=== PATIENT | female | born 1990 | race Caucasian/White ===

== ENCOUNTER 2019-03-08 09:57 | Inpatient (IN) | payer OTHER ==
[~2019-03-08] VITALS: Ht 149.9 cm; Wt 59.1 kg
[2019-03-08] MEDS ORDERED: PEG 3350/NA SULF,BICARB,CL/KCL 4000 ML SOLUTION PO ONE (10:15)
[2019-03-08] MEDS ORDERED: SODIUM CHLORIDE 0.9% 1,000 ML IV ONE (10:15)
[2019-03-08 12:25] LABS: BASOPHILS % (AUTO) 0.5 % (0.0-2.0); EOSINOPHILS % (AUTO) 1.8 % (1.0-6.0); HEMATOCRIT 36.2 % (36-46); HEMOGLOBIN 12.1 g/dL (12.0-16.0); LYMPHOCYTES # (AUTO) 2.6 K/uL (1.0-4.8); LYMPHOCYTES % (AUTO) 42.7 % (22.0-44.0); MEAN CORPUSCULAR HEMOGLOBIN 29.2 pg (26.0-34.0); MEAN CORPUSCULAR HGB CONC 33.3 G/dL (31.0-37.0); MEAN CORPUSCULAR VOLUME 88 fL (80-100); MONOCYTES # (AUTO) 0.6 K/uL (0.1-1.0); MONOCYTES % (AUTO) 9.2 % (2.0-9.0); NEUTROPHILS # (AUTO) 2.8 K/uL (1.8-7.7); NEUTROPHILS % (AUTO) 45.8 % (40.0-70.0); PLATELET COUNT (AUTO) 227 K/uL (150-450); RED BLOOD CELL COUNT(AUTO) 4.14 MIL/uL (4.00-5.20); RED CELL DISTRIBUTION WIDTH 13.8 % (11.5-14.5)
[2019-03-08 12:50] LABS: ALANINE AMINOTRANSFERASE 22 U/L (12-78); ALBUMIN 3.1 g/dL (3.4-5.0); ALKALINE PHOSPHATASE 72 U/L (46-116); ANION GAP 9 mmol/L (8-16); ASPARTATE AMINOTRANSFERASE 20 U/L (15-37); BILIRUBIN,TOTAL 0.4 mg/dL (0.1-1.0); CALCIUM, TOTAL 8.3 mg/dL (8.8-10.5); CARBON DIOXIDE 22 mmol/L (22-29); CHLORIDE 106 mmol/L (98-107); CREATININE 0.45 mg/dL (0.60-1.30); GLOMERULAR FILTR. RATE CALC > 60 mL/min (>60); GLUCOSE,RANDOM 126 mg/dL (70-110); HCG,QUANTITATIVE 1 mIU/mL (0-6); SODIUM SERUM 137 mmol/L (136-145); TOTAL PROTEIN, SERUM 6.5 g/dL (6.4-8.2); UREA NITROGEN, BLOOD 12 mg/dL (7-18)
[2019-03-08 12:51] LABS: ACETAMINOPHEN < 2 mcg/mL (10-30)
[2019-03-08 13:26] LABS: SALICYLATE 0.4 mg/dL (2.8-20.0)
[2019-03-08] MEDS ORDERED: NALOXONE HCL 1 MG/ML 2 ML SYG IVP ONE ×2 (13:30→16:45)
[2019-03-08 13:43] LABS: AMPHET/METH SCREEN,URINE POSITIVE (NEGATIVE); BARBITURATE SCREEN, URINE NEGATIVE (NEGATIVE); BENZODIAZEPINES SCREEN,URINE NEGATIVE (NEGATIVE); CANNABINOID SCREEN,URINE NEGATIVE (NEGATIVE); COCAINE SCREEN,URINE NEGATIVE (NEGATIVE); METHADONE SCREEN, URINE NEGATIVE (NEGATIVE); OPIATE SCREEN,URINE POSITIVE (NEGATIVE); PHENCYCLIDINE SCREEN,URINE NEGATIVE (NEGATIVE)
[2019-03-08] MEDS ORDERED: ONDANSETRON HCL 4 MG/2 ML VIAL IVP ONE (13:45)
[2019-03-08] MEDS: POTASSIUM CHL 10 MEQ/WATER 50 ML IV SCH ×2 (13:55→17:14)
[2019-03-08] MEDS ORDERED: LORazepam 2 MG/ML VIAL IVP PRN (14:45)
[2019-03-08] MEDS ORDERED: IBUPROFEN 400 MG TABLET PO PRN (14:45)
[2019-03-08] MEDS ORDERED: DOCUSATE SODIUM 100 MG CAPSULE PO PRN (14:45)
[2019-03-08] MEDS ORDERED: ACETAMINOPHEN/CODEINE 300-15 MG TABLET PO PRN (14:45)
[2019-03-08] MEDS ORDERED: LOPERAMIDE HCL 2 MG CAPSULE PO PRN (14:45)
[2019-03-08] MEDS ORDERED: MAG HYDROX/AL HYDROX/SIMETH ES 30 ML SUSPENSION UDCUP PO PRN (14:45)
[2019-03-08] MEDS ORDERED: ONDANSETRON HCL 4 MG TABLET PO PRN (14:45)
[2019-03-08] MEDS ORDERED: MAGNESIUM HYDROXIDE SUSPENSION 30 ML UDCUP PO PRN (14:45)
[2019-03-08] MEDS ORDERED: GuaiFENesin/D-METHORPHAN [SUGAR-FREE] 200-20MG/10 ML SYRUP UDCUP PO PRN (14:45)
[2019-03-08] MEDS ORDERED: ACETAMINOPHEN 325 MG TABLET PO PRN (14:45)
[2019-03-08] MEDS ORDERED: DICYCLOMINE HCL 10 MG CAPSULE PO PRN (14:45)
[2019-03-08] MEDS ORDERED: METOCLOPRAMIDE HCL 5 MG/ML 2 ML VIAL IVP PRN (14:45)
[2019-03-08] MEDS ORDERED: ALBUTEROL SULFATE HFA 90 MCG/PUFF 8 GM INHALER IH PRN (14:45)
[2019-03-08] MEDS ORDERED: MAGNESIUM SULFATE 2 GM, MVI, ADULT NO.1 WITH VIT K 10 ML, THIAMINE HCL 100 MG, FOLIC AC... IV ONE ×5 (14:45)
[2019-03-08] MEDS ORDERED: NICOTINE 14 MG/24 HOUR PATCH TD PRN (14:45)
[2019-03-08] MEDS ORDERED: CloNIDine HCL 0.1 MG TABLET PO PRN (14:45)
[2019-03-08] MEDS ORDERED: PETROLATUM,WHITE 28 GM JELLY TP PRN (14:45)
[2019-03-08] MEDS ORDERED: SODIUM CHLORIDE 0.9% 500 ML IV ONE (16:57)
[2019-03-08 19:40] VITALS: BP 99/65
[2019-03-08] MEDS: TEMAZEPAM 15 MG CAPSULE PO SCH (21:00)
[2019-03-09 05:13] VITALS: BP 107/69
[2019-03-09 07:39] VITALS: BP 110/67
[2019-03-09 11:26] VITALS: BP 104/60
[2019-03-09 15:19] VITALS: BP 114/74
[2019-03-09 19:49] VITALS: BP 110/65
[2019-03-09] MEDS: TEMAZEPAM 15 MG CAPSULE PO SCH (21:00)
[2019-03-10] VITALS (7 sets, daily range): BP systolic 107–125; BP diastolic 68–78
[2019-03-10] MEDS ORDERED: ONDA4 PO (08:38)
[2019-03-10] MEDS ORDERED: DIPH-654 PO (08:39)
[2019-03-10] MEDS: TEMAZEPAM 15 MG CAPSULE PO SCH (21:00)
[2019-03-11 05:11] VITALS: BP 123/77
[2019-03-11 07:56] VITALS: BP 114/76
== END 2019-03-11 10:15 | DRG 641 ==
LOC: EMS 10:07 → 6S 14:34
PROVIDERS: ADMIT Internal Medicine; ATTEND Internal Medicine
DX: E87.6 Hypokalemia (principal); R73.9 Hyperglycemia, unspecified; Z88.0 Allergy status to penicillin; B18.2 Chronic viral hepatitis C; F11.10 Opioid abuse, uncomplicated
CPT/HCPCS: 74018; 84132; 93005; 96361; 96374; 96375; 99291; G0480; G0481; J2310; J2405; J3411; J3475; J3480; J3490; J7030; J7040

== ENCOUNTER 2019-04-10 18:09 | Inpatient (IN) | payer OTHER ==
[~2019-04-10] VITALS: Ht 149.9 cm; Wt 59.3 kg
[~2019-04-10 18:09] MED LIST: DIPH-654 PO; ONDA-104 PO
[2019-04-10] MEDS ORDERED: ACETAMINOPHEN 325 MG TABLET PO PRN (18:30)
[2019-04-10 19:32] LABS: BASOPHILS % (AUTO) 0.3 % (0.0-2.0); EOSINOPHILS % (AUTO) 1.2 % (1.0-6.0); HEMATOCRIT 42.3 % (36-46); HEMOGLOBIN 14.1 g/dL (12.0-16.0); LYMPHOCYTES # (AUTO) 2.5 K/uL (1.0-4.8); LYMPHOCYTES % (AUTO) 38.2 % (22.0-44.0); MEAN CORPUSCULAR HEMOGLOBIN 29.7 pg (26.0-34.0); MEAN CORPUSCULAR HGB CONC 33.2 G/dL (31.0-37.0); MEAN CORPUSCULAR VOLUME 89 fL (80-100); MONOCYTES # (AUTO) 0.5 K/uL (0.1-1.0); MONOCYTES % (AUTO) 8.5 % (2.0-9.0); NEUTROPHILS # (AUTO) 3.3 K/uL (1.8-7.7); NEUTROPHILS % (AUTO) 51.8 % (40.0-70.0); PLATELET COUNT (AUTO) 272 K/uL (150-450); RED BLOOD CELL COUNT(AUTO) 4.74 MIL/uL (4.00-5.20); RED CELL DISTRIBUTION WIDTH 15.4 % (11.5-14.5)
[2019-04-10 19:42] LABS: ANION GAP 9 mmol/L (8-16); CARBON DIOXIDE 30 mmol/L (22-29); CHLORIDE 102 mmol/L (98-107); CREATININE 0.66 mg/dL (0.60-1.30); GLOMERULAR FILTR. RATE CALC > 60 mL/min (>60); GLUCOSE,RANDOM 78 mg/dL (70-110); POTASSIUM 4.7 mmol/L (3.5-5.1); SODIUM SERUM 141 mmol/L (136-145); UREA NITROGEN, BLOOD 15 mg/dL (7-18)
[2019-04-10 19:45] VITALS: BP 113/77
[2019-04-10 19:48] LABS: ALANINE AMINOTRANSFERASE 43 U/L (12-78); ALBUMIN 3.6 g/dL (3.4-5.0); ALKALINE PHOSPHATASE 85 U/L (46-116); ASPARTATE AMINOTRANSFERASE 18 U/L (15-37); BILIRUBIN,TOTAL 0.4 mg/dL (0.1-1.0); TOTAL PROTEIN, SERUM 7.8 g/dL (6.4-8.2)
[2019-04-10 21:50] LABS: AMPHET/METH SCREEN,URINE NEGATIVE (NEGATIVE); BARBITURATE SCREEN, URINE NEGATIVE (NEGATIVE); BENZODIAZEPINES SCREEN,URINE NEGATIVE (NEGATIVE); CANNABINOID SCREEN,URINE NEGATIVE (NEGATIVE); COCAINE SCREEN,URINE NEGATIVE (NEGATIVE); METHADONE SCREEN, URINE NEGATIVE (NEGATIVE); OPIATE SCREEN,URINE NEGATIVE (NEGATIVE)
[2019-04-10 21:53] LABS: PHENCYCLIDINE SCREEN,URINE NEGATIVE (NEGATIVE)
[2019-04-10 23:00] VITALS: BP 103/65
[2019-04-11] VITALS (7 sets, daily range): BP systolic 95–129; BP diastolic 47–79
[2019-04-11] MEDS ORDERED: INFLUENZA VIRUS VACCINE QVS 2019-20 (3YR+)/PF 60 MCG/0.5 ML SYRINGE IM ONE (03:45)
[2019-04-11] MEDS ORDERED: ONDANSETRON HCL 4 MG/2 ML VIAL IVP PRN (05:00)
[2019-04-11] MEDS ORDERED: 0.9% SODIUM CHLORIDE 10 ML SYRINGE IVP PRN (05:00)
[2019-04-11] MEDS ORDERED: OxyCODONE HCL/ACETAMINOPHEN 5-325 MG TABLET PO PRN ×2 (05:00)
[2019-04-11] MEDS: DOCUSATE SODIUM 100 MG CAPSULE PO SCH ×2 (09:00→20:47)
[2019-04-11] MEDS ORDERED: DiphenhydrAMINE HCL 25 MG CAPSULE PO PRN (10:00)
[2019-04-11] MEDS: SERTRALINE HCL 50 MG TABLET PO SCH (10:35)
[2019-04-11] MEDS ORDERED: ACETAMINOPHEN 325 MG TABLET PO PRN (17:15)
[2019-04-11] MEDS: HydrOXYzine PAMOATE 50 MG CAPSULE PO PRN (20:47)
[2019-04-11] MEDS: OLANZapine 5 MG TABLET PO SCH (20:47)
[2019-04-12 05:15] VITALS: BP 104/64
[2019-04-12 06:39] LABS: BASOPHILS % (AUTO) 0.7 % (0.0-2.0); EOSINOPHILS % (AUTO) 3.2 % (1.0-6.0); HEMATOCRIT 38.1 % (36-46); HEMOGLOBIN 12.9 g/dL (12.0-16.0); LYMPHOCYTES # (AUTO) 2.8 K/uL (1.0-4.8); LYMPHOCYTES % (AUTO) 50.5 % (22.0-44.0); MEAN CORPUSCULAR HEMOGLOBIN 30.3 pg (26.0-34.0); MEAN CORPUSCULAR HGB CONC 33.9 G/dL (31.0-37.0); MEAN CORPUSCULAR VOLUME 90 fL (80-100); MONOCYTES # (AUTO) 0.6 K/uL (0.1-1.0); NEUTROPHILS % (AUTO) 35.6 % (40.0-70.0); PLATELET COUNT (AUTO) 258 K/uL (150-450); RED BLOOD CELL COUNT(AUTO) 4.26 MIL/uL (4.00-5.20); RED CELL DISTRIBUTION WIDTH 15.8 % (11.5-14.5)
[2019-04-12 06:56] LABS: ANION GAP 7 mmol/L (8-16); CALCIUM, TOTAL 8.4 mg/dL (8.8-10.5); CARBON DIOXIDE 27 mmol/L (22-29); CHLORIDE 108 mmol/L (98-107); CREATININE 0.65 mg/dL (0.60-1.30); GLOMERULAR FILTR. RATE CALC > 60 mL/min (>60); GLUCOSE,RANDOM 74 mg/dL (70-110); SODIUM SERUM 142 mmol/L (136-145); UREA NITROGEN, BLOOD 15 mg/dL (7-18)
[2019-04-12 08:21] VITALS: BP 113/72
[2019-04-12] MEDS: DOCUSATE SODIUM 100 MG CAPSULE PO SCH ×2 (08:59→20:26)
[2019-04-12] MEDS: SERTRALINE HCL 50 MG TABLET PO SCH (09:00)
[2019-04-12 12:46] VITALS: BP 108/64
[2019-04-12 17:53] VITALS: BP 108/69
[2019-04-12 19:45] VITALS: BP 102/54
[2019-04-12] MEDS: OLANZapine 5 MG TABLET PO SCH (20:26)
[2019-04-12 23:50] VITALS: BP 106/51
[2019-04-13 04:37] VITALS: BP 96/58
[2019-04-13 08:56] VITALS: BP 113/67
[2019-04-13] MEDS: DOCUSATE SODIUM 100 MG CAPSULE PO SCH ×2 (09:00→19:32)
[2019-04-13] MEDS: SERTRALINE HCL 50 MG TABLET PO SCH (09:00)
[2019-04-13 11:04] VITALS: BP 113/69
[2019-04-13 15:28] VITALS: BP 104/59
[2019-04-13 19:22] VITALS: BP 117/61
[2019-04-13] MEDS: OLANZapine 10 MG TABLET PO SCH (19:32)
[2019-04-13 23:33] VITALS: BP 108/64
[2019-04-14 04:43] VITALS: BP 102/73
[2019-04-14 07:44] VITALS: BP 111/74
[2019-04-14] MEDS: SERTRALINE HCL 100 MG TABLET PO SCH (08:19)
[2019-04-14] MEDS: DOCUSATE SODIUM 100 MG CAPSULE PO SCH ×2 (08:20→20:06)
[2019-04-14] MEDS: PANTOPRAZOLE SODIUM 40 MG DR TABLET PO SCH (10:03)
[2019-04-14 11:09] VITALS: BP 115/67
[2019-04-14 15:15] VITALS: BP 110/59
[2019-04-14] MEDS: OLANZapine 10 MG TABLET PO SCH (20:06)
[2019-04-14 20:50] VITALS: BP 101/60
[2019-04-15] VITALS (7 sets, daily range): BP systolic 99–118; BP diastolic 47–71
[2019-04-15 03:55] LABS: APPEARANCE,URINE CLEAR (CLEAR); BILIRUBIN,URINE NEGATIVE (NEGATIVE); GLUCOSE, URINE (UA) NEGATIVE (NEGATIVE); KETONES,URINE NEGATIVE (NEGATIVE); LEUKOCYTE ESTERASE ,URINE SMALL (NEGATIVE); NITRATE,URINE NEGATIVE (NEGATIVE); OCCULT BLOOD,URINE NEGATIVE (NEGATIVE); PH,URINE 6.5 (5.0-8.0); PROTEIN,URINE NEGATIVE (NEGATIVE); UROBILINOGEN,URINE 0.2 mg/dL (<=1.0)
[2019-04-15 04:06] LABS: BACTERIA,URINE Rare /HPF (None Seen); RBC,URINE 0-2 /HPF (0-2); SQUAMOUS EPITHELIAL CELL,UR Few /LPF (None Seen)
[2019-04-15] MEDS: DOCUSATE SODIUM 100 MG CAPSULE PO SCH ×2 (08:02→20:18)
[2019-04-15] MEDS: SERTRALINE HCL 100 MG TABLET PO SCH (08:03)
[2019-04-15] MEDS: PANTOPRAZOLE SODIUM 40 MG DR TABLET PO SCH (08:03)
[2019-04-15] MEDS: HydrOXYzine PAMOATE 50 MG CAPSULE PO PRN (11:19)
[2019-04-15] MEDS: OLANZapine 10 MG TABLET PO SCH (20:18)
[2019-04-16 04:30] VITALS: BP 102/57
[2019-04-16 08:03] VITALS: BP 111/55
[2019-04-16] MEDS: DOCUSATE SODIUM 100 MG CAPSULE PO SCH ×2 (08:16→20:31)
[2019-04-16] MEDS: SERTRALINE HCL 100 MG TABLET PO SCH ×2 (08:16→11:39)
[2019-04-16] MEDS: PANTOPRAZOLE SODIUM 40 MG DR TABLET PO SCH (08:16)
[2019-04-16] MEDS ORDERED: SERTRALINE HCL 50 MG TABLET PO ONE (10:15)
[2019-04-16 11:48] VITALS: BP 103/62
[2019-04-16 15:39] VITALS: BP 106/55
[2019-04-16 19:50] VITALS: BP 98/53
[2019-04-16] MEDS: OLANZapine 10 MG TABLET PO SCH (20:31)
[2019-04-17] VITALS (7 sets, daily range): BP systolic 89–110; BP diastolic 55–76
[2019-04-17] MEDS: PANTOPRAZOLE SODIUM 40 MG DR TABLET PO SCH (08:36)
[2019-04-17] MEDS: SERTRALINE HCL 100 MG TABLET PO SCH (08:36)
[2019-04-17] MEDS: DOCUSATE SODIUM 100 MG CAPSULE PO SCH ×2 (08:36→20:16)
[2019-04-17] MEDS: OLANZapine 10 MG TABLET PO SCH (20:16)
[2019-04-17] MEDS: HydrOXYzine PAMOATE 50 MG CAPSULE PO PRN (20:16)
[2019-04-18 05:00] VITALS: BP 102/62
[2019-04-18 07:35] VITALS: BP 97/61
[2019-04-18] MEDS: DOCUSATE SODIUM 100 MG CAPSULE PO SCH ×2 (08:03→20:25)
[2019-04-18] MEDS: PANTOPRAZOLE SODIUM 40 MG DR TABLET PO SCH (08:03)
[2019-04-18] MEDS: SERTRALINE HCL 100 MG TABLET PO SCH (08:04)
[2019-04-18 11:42] VITALS: BP 108/67
[2019-04-18 16:09] VITALS: BP 105/68
[2019-04-18 19:56] VITALS: BP 113/61
[2019-04-18] MEDS: OLANZapine 10 MG TABLET PO SCH (20:25)
[2019-04-18 23:48] VITALS: BP 104/52
[2019-04-19 05:37] VITALS: BP 104/60
[2019-04-19 07:35] VITALS: BP 102/54
[2019-04-19] MEDS: PANTOPRAZOLE SODIUM 40 MG DR TABLET PO SCH (08:39)
[2019-04-19] MEDS: DOCUSATE SODIUM 100 MG CAPSULE PO SCH ×2 (08:39→19:56)
[2019-04-19] MEDS: SERTRALINE HCL 100 MG TABLET PO SCH (08:39)
[2019-04-19 11:31] VITALS: BP 110/68
[2019-04-19 15:29] VITALS: BP 113/68
[2019-04-19] MEDS: HydrOXYzine PAMOATE 50 MG CAPSULE PO PRN (19:56)
[2019-04-19] MEDS: OLANZapine 10 MG TABLET PO SCH (19:57)
[2019-04-19 20:00] VITALS: BP 109/67
[2019-04-20 00:41] VITALS: BP 107/55
[2019-04-20 05:22] VITALS: BP 102/53
[2019-04-20] MEDS: DOCUSATE SODIUM 100 MG CAPSULE PO SCH (08:19)
[2019-04-20] MEDS: PANTOPRAZOLE SODIUM 40 MG DR TABLET PO SCH (08:19)
[2019-04-20 08:42] VITALS: BP 114/73
[2019-04-20] MEDS ORDERED: SERTRALINE HCL 100 MG TABLET PO SCH (09:00)
[2019-04-20] MEDS ORDERED: SERT100T12 PO (11:45)
[2019-04-20] MEDS ORDERED: OLAN10TA3 PO (11:46)
[2019-04-20 12:28] VITALS: BP 113/70
== END 2019-04-20 18:00 | DRG 885 ==
LOC: EMS 18:10 → 6S 18:40
PROVIDERS: ADMIT Internal Medicine; ATTEND Internal Medicine
DX: F25.1 Schizoaffective disorder, depressive type (principal); R45.851 Suicidal ideations; B18.2 Chronic viral hepatitis C; F11.10 Opioid abuse, uncomplicated; Z88.0 Allergy status to penicillin; Z59.0 Homelessness; Z79.899 Other long term (current) drug therapy
CPT/HCPCS: 87086; 90686; G0480

== ENCOUNTER 2019-04-27 23:18 | Inpatient (IN) | payer OTHER ==
[~2019-04-27] VITALS: Ht 139.7 cm; Wt 69.0 kg
[~2019-04-27 23:18] MED LIST changes: -DIPH-654 PO; +OLAN10TA3 PO; -ONDA-104 PO; +SERT100T12 PO
[2019-04-28] VITALS (7 sets, daily range): BP systolic 95–126; BP diastolic 57–77
[2019-04-28] MEDS ORDERED: ACETAMINOPHEN 325 MG TABLET PO PRN
[2019-04-28 00:33] LABS: BASOPHILS % (AUTO) 0.4 % (0.0-2.0); EOSINOPHILS % (AUTO) 1.6 % (1.0-6.0); HEMATOCRIT 40.5 % (36-46); HEMOGLOBIN 13.6 g/dL (12.0-16.0); LYMPHOCYTES # (AUTO) 2.8 K/uL (1.0-4.8); LYMPHOCYTES % (AUTO) 34.6 % (22.0-44.0); MEAN CORPUSCULAR HEMOGLOBIN 30.2 pg (26.0-34.0); MEAN CORPUSCULAR HGB CONC 33.7 G/dL (31.0-37.0); MEAN CORPUSCULAR VOLUME 90 fL (80-100); MONOCYTES # (AUTO) 0.8 K/uL (0.1-1.0); MONOCYTES % (AUTO) 9.2 % (2.0-9.0); NEUTROPHILS # (AUTO) 4.5 K/uL (1.8-7.7); NEUTROPHILS % (AUTO) 54.2 % (40.0-70.0); PLATELET COUNT (AUTO) 273 K/uL (150-450); RED BLOOD CELL COUNT(AUTO) 4.52 MIL/uL (4.00-5.20); RED CELL DISTRIBUTION WIDTH 15.6 % (11.5-14.5)
[2019-04-28 00:45] LABS: ANION GAP 6 mmol/L (8-16); CALCIUM, TOTAL 9.1 mg/dL (8.8-10.5); CARBON DIOXIDE 31 mmol/L (22-29); CHLORIDE 102 mmol/L (98-107); CREATININE 0.62 mg/dL (0.60-1.30); GLOMERULAR FILTR. RATE CALC > 60 mL/min (>60); GLUCOSE,RANDOM 69 mg/dL (70-110); POTASSIUM 3.8 mmol/L (3.5-5.1); SODIUM SERUM 139 mmol/L (136-145); UREA NITROGEN, BLOOD 16 mg/dL (7-18)
[2019-04-28 00:56] LABS: ALANINE AMINOTRANSFERASE 49 U/L (12-78); ALBUMIN 3.7 g/dL (3.4-5.0); ALKALINE PHOSPHATASE 89 U/L (46-116); ASPARTATE AMINOTRANSFERASE 20 U/L (15-37); BILIRUBIN,TOTAL 0.2 mg/dL (0.1-1.0); HCG,QUANTITATIVE 1 mIU/mL (0-6); TOTAL PROTEIN, SERUM 8.1 g/dL (6.4-8.2)
[2019-04-28 03:24] LABS: AMPHET/METH SCREEN,URINE NEGATIVE (NEGATIVE); BARBITURATE SCREEN, URINE NEGATIVE (NEGATIVE); BENZODIAZEPINES SCREEN,URINE NEGATIVE (NEGATIVE); CANNABINOID SCREEN,URINE NEGATIVE (NEGATIVE); COCAINE SCREEN,URINE NEGATIVE (NEGATIVE); METHADONE SCREEN, URINE NEGATIVE (NEGATIVE); OPIATE SCREEN,URINE NEGATIVE (NEGATIVE)
[2019-04-28 03:26] LABS: PHENCYCLIDINE SCREEN,URINE NEGATIVE (NEGATIVE)
[2019-04-28] MEDS ORDERED: MAGNESIUM HYDROXIDE SUSPENSION 30 ML UDCUP PO PRN (08:15)
[2019-04-28] MEDS: SERTRALINE HCL 100 MG TABLET PO SCH (15:49)
[2019-04-28] MEDS: ACETAMINOPHEN 325 MG TABLET PO PRN (18:24)
[2019-04-28] MEDS: OLANZapine 10 MG TABLET PO SCH (19:43)
[2019-04-29] MEDS: ACETAMINOPHEN 325 MG TABLET PO PRN (01:38)
[2019-04-29 05:10] VITALS: BP 106/82
[2019-04-29 08:02] VITALS: BP 109/73
[2019-04-29] MEDS: SERTRALINE HCL 100 MG TABLET PO SCH (08:09)
[2019-04-29 11:40] VITALS: BP 111/64
[2019-04-29 16:01] VITALS: BP 117/66
[2019-04-29 19:46] VITALS: BP 125/69
[2019-04-29] MEDS: OLANZapine 10 MG TABLET PO SCH (20:32)
[2019-04-30 00:15] VITALS: BP 114/64
[2019-04-30 04:45] VITALS: BP 103/60
[2019-04-30 08:29] VITALS: BP 96/55
[2019-04-30] MEDS: SERTRALINE HCL 100 MG TABLET PO SCH (08:41)
[2019-04-30] MEDS: ACETAMINOPHEN 325 MG TABLET PO PRN (11:21)
[2019-04-30 11:24] VITALS: BP 106/63
[2019-04-30 15:39] VITALS: BP 115/69
[2019-04-30 19:30] VITALS: BP 119/72
[2019-04-30] MEDS: OLANZapine 10 MG TABLET PO SCH (20:45)
[2019-05-01] VITALS (7 sets, daily range): BP systolic 111–121; BP diastolic 57–79
[2019-05-01] MEDS: SERTRALINE HCL 100 MG TABLET PO SCH (08:20)
[2019-05-01] MEDS ORDERED: HALOPERIDOL 5 MG TABLET PO PRN (15:15)
[2019-05-01] MEDS: ACETAMINOPHEN 325 MG TABLET PO PRN (18:13)
[2019-05-01] MEDS: OLANZapine 10 MG TABLET PO SCH (20:22)
[2019-05-02] MEDS: ACETAMINOPHEN 325 MG TABLET PO PRN ×2 (02:58→06:58)
[2019-05-02 04:51] VITALS: BP 115/71
[2019-05-02] MEDS: SERTRALINE HCL 100 MG TABLET PO SCH (07:58)
[2019-05-02 08:12] VITALS: BP 115/63
[2019-05-02 11:10] VITALS: BP 131/84
[2019-05-02] MEDS ORDERED: CLINDAMYCIN HCL 150 MG CAPSULE PO SCH (13:00)
[2019-05-02] MEDS: CLINDAMYCIN HCL 300 MG CAPSULE PO SCH ×3 (13:50→20:17)
[2019-05-02 19:57] VITALS: BP 118/62
[2019-05-02] MEDS: OLANZapine 10 MG TABLET PO SCH (20:17)
[2019-05-03 00:17] VITALS: BP 122/74
[2019-05-03 04:51] VITALS: BP 111/75
[2019-05-03 07:20] VITALS: BP 93/56
[2019-05-03] MEDS: SERTRALINE HCL 100 MG TABLET PO SCH (08:39)
[2019-05-03] MEDS: CLINDAMYCIN HCL 300 MG CAPSULE PO SCH ×4 (08:39→20:33)
[2019-05-03 11:10] VITALS: BP 109/70
[2019-05-03 15:30] VITALS: BP 110/65
[2019-05-03] MEDS: ACETAMINOPHEN 325 MG TABLET PO PRN (18:45)
[2019-05-03 20:11] VITALS: BP 106/63
[2019-05-03] MEDS: OLANZapine 10 MG TABLET PO SCH (20:33)
[2019-05-04 05:39] VITALS: BP 115/87
[2019-05-04 07:52] VITALS: BP 122/77
[2019-05-04] MEDS: CLINDAMYCIN HCL 300 MG CAPSULE PO SCH ×4 (08:10→20:30)
[2019-05-04] MEDS: SERTRALINE HCL 100 MG TABLET PO SCH (08:13)
[2019-05-04] MEDS: ACETAMINOPHEN 325 MG TABLET PO PRN (08:14)
[2019-05-04 11:35] VITALS: BP 118/62
[2019-05-04 15:38] VITALS: BP 115/72
[2019-05-04 19:52] VITALS: BP 114/65
[2019-05-04] MEDS: OLANZapine 10 MG TABLET PO SCH (20:30)
[2019-05-04 23:30] VITALS: BP 104/62
[2019-05-05 05:27] VITALS: BP 108/56
[2019-05-05 07:44] VITALS: BP 105/56
[2019-05-05] MEDS: CLINDAMYCIN HCL 300 MG CAPSULE PO SCH ×4 (08:07→20:08)
[2019-05-05] MEDS: SERTRALINE HCL 100 MG TABLET PO SCH (08:08)
[2019-05-05 11:34] VITALS: BP 105/62
[2019-05-05 16:37] VITALS: BP 106/67
[2019-05-05 19:58] VITALS: BP 116/69
[2019-05-05] MEDS: ZOLPIDEM TARTRATE 5 MG TABLET PO SCH (20:08)
[2019-05-05] MEDS: OLANZapine 10 MG TABLET PO SCH (20:08)
[2019-05-06] VITALS (7 sets, daily range): BP systolic 104–133; BP diastolic 53–73
[2019-05-06] MEDS: CLINDAMYCIN HCL 300 MG CAPSULE PO SCH ×4 (08:12→20:00)
[2019-05-06] MEDS: SERTRALINE HCL 100 MG TABLET PO SCH (08:12)
[2019-05-06] MEDS ORDERED: MULTIVITAMINS WITH MINERALS, THERAPEUTIC TABLET PO SCH (09:00)
[2019-05-06] MEDS: OLANZapine 10 MG TABLET PO SCH (19:59)
[2019-05-06] MEDS: ZOLPIDEM TARTRATE 5 MG TABLET PO SCH (20:00)
[2019-05-07 05:20] VITALS: BP 106/71
[2019-05-07 07:38] VITALS: BP 112/62
[2019-05-07] MEDS: CLINDAMYCIN HCL 300 MG CAPSULE PO SCH ×4 (08:01→19:58)
[2019-05-07] MEDS: SERTRALINE HCL 100 MG TABLET PO SCH (08:01)
[2019-05-07 11:48] VITALS: BP 112/64
[2019-05-07 15:45] VITALS: BP 103/64
[2019-05-07 19:35] VITALS: BP 110/67
[2019-05-07] MEDS: ZOLPIDEM TARTRATE 5 MG TABLET PO SCH (19:58)
[2019-05-07] MEDS: OLANZapine 10 MG TABLET PO SCH (19:58)
[2019-05-07 23:20] VITALS: BP 110/64
[2019-05-08 05:40] VITALS: BP 100/54
[2019-05-08 07:32] VITALS: BP 100/62
[2019-05-08] MEDS: CLINDAMYCIN HCL 300 MG CAPSULE PO SCH ×3 (08:39→16:47)
[2019-05-08] MEDS: SERTRALINE HCL 100 MG TABLET PO SCH (08:39)
[2019-05-08 11:29] VITALS: BP 101/65
[2019-05-08] MEDS ORDERED: SERT100T12 PO (12:25)
[2019-05-08] MEDS ORDERED: CLIN300C3 PO (12:50)
[2019-05-08 16:27] VITALS: BP 115/66
[2019-05-08] MEDS: OLANZapine 10 MG TABLET PO SCH (16:47)
== END 2019-05-08 17:50 | DRG 881 ==
LOC: EMS 23:20 → 6S 04-28
PROVIDERS: ADMIT Internal Medicine; ATTEND Internal Medicine
DX: F32.9 Major depressive disorder, single episode, unspecified (principal); R45.851 Suicidal ideations; F11.20 Opioid dependence, uncomplicated; B19.20 Unspecified viral hepatitis C without hepatic coma; F25.1 Schizoaffective disorder, depressive type; E66.9 Obesity, unspecified; G47.00 Insomnia, unspecified; Z87.891 Personal history of nicotine dependence; Z68.35 Body mass index [BMI] 35.0-35.9, adult; Z88.0 Allergy status to penicillin; Z59.0 Homelessness
CPT/HCPCS: 83036; G0480